=== PATIENT | male | born 1985 | race Caucasian/White ===

== ENCOUNTER 2017-10-16 13:37 | Emergency (ER) | payer OTHER ==
[2017-10-16 14:09] VITALS: BP 123/78
--- NOTE | 2017-10-16 14:43 | RAD ---
HISTORY: Fall, left lateral rib pain COMPARISONS: None VIEWS: 6, Frontal view of the chest with frontal and oblique views of the left hemithorax FINDINGS: There is a nondisplaced fracture of the lateral aspect of the left eighth rib IMPRESSION: NONDISPLACED FRACTURE OF THE LATERAL ASPECT OF THE LEFT EIGHTH RIB. NO PNEUMOTHORAX.
--- NOTE | 2017-10-16 15:12 | UC ---
Minor Trauma HPI - HPI Summary HPI Summary: fell on side walk yesterday pain in left lower ribs - History of Current Complaint Chief Complaint: UCUpperExtremity Stated Complaint: LEFT SIDE INJURY Time Seen by Provider: 10/16/17 15:10 Hx Obtained From: Patient Onset/Duration: Sudden Onset, Lasting Days - 1, Still Present Onset Of Pain: Immediate Severity Initially: Moderate Severity Currently: Moderate Pain Intensity: 7 Pain Scale Used: 0-10 Numeric Mechanism Of Injury: Fall From A Standing Position Aggravating Factor(s): Coughing, Deep Breaths Alleviating Factor(s): Nothing - Allergies/Home Medications Allergies/Adverse Reactions: Allergies Allergy/AdvReac Type Severity Reaction Status Date / Time No Known Allergies Allergy Verified 11/14/15 07:11 PMH/Surg Hx/FS Hx/Imm Hx Previously Healthy: Yes Other History Of: Negative For: Anticoagulant Therapy - Surgical History Surgical History: None - Family History Known Family History: Positive: None, Cardiac Disease - paternal grandmother, Diabetes - paternal grandmother, maternal grandparents Negative: Hypertension - Social History Occupation: Employed Full-time Lives: Alone Alcohol Use: Rare Alcohol Amount: STOPPED DRINKING JANUARY Substance Use Type: None Substance Use Comment - Amount & Last Used: 1 monster and 2 cups coffee daily Smoking Status (MU): Former Smoker Type: Cigarettes Amount Used/How Often: quit 2 years ago, smoked ~1 year When Did the Patient Quit Smoking/Using Tobacco: 2010 - Immunization History Vaccination Up to Date: Yes Review of Systems Constitutional: Negative Skin: Negative Eyes: Negative ENT: Negative Respiratory: Negative Cardiovascular: Negative Gastrointestinal: Negative Genitourinary: Negative Motor: Negative Neurovascular: Negative Musculoskeletal: Arthralgia - left lower anterior ribs Neurological: Negative Psychological: Negative Is Patient Immunocompromised?: No All Other Systems Reviewed And Are Negative: Yes Physical Exam Triage Information Reviewed: Yes Appearance: Well-Appearing, Well-Nourished, Pain Distress - moderate Vital Signs: Initial Vital Signs Temp 98.8 F 10/16/17 14:06 Pulse 107 10/16/17 14:06 Resp 18 10/16/17 14:06 BP 123/78 10/16/17 14:06 Pulse Ox 100 10/16/17 14:06 Vital Signs Reviewed: Yes Eye Exam: Normal Eyes: Positive: Conjunctiva Clear ENT Exam: Normal ENT: Positive: Normal ENT inspection, Hearing grossly normal, Pharynx normal. Negative: Nasal congestion, Nasal drainage, Trismus, Muffled voice, Hoarse voice , Sinus tenderness Dental Exam: Normal Neck exam: Normal Neck: Positive: Supple, Nontender, No Lymphadenopathy Respiratory Exam: Normal Respiratory: Positive: Chest non-tender, Lungs clear, Normal breath sounds, No respiratory distress, No accessory muscle use Cardiovascular Exam: Normal Cardiovascular: Positive: RRR, No Murmur, Pulses Normal, Brisk Capillary Refill Abdominal Exam: Normal Abdomen Description: Positive: Nontender, No Organomegaly, Soft. Negative: CVA Tenderness (R), CVA Tenderness (L) Bowel Sounds: Positive: Present Musculoskeletal Exam: Normal Musculoskeletal: Positive: Strength Intact, ROM Intact, No Edema Neurological Exam: Normal Neurological: Positive: Alert, Muscle Tone Normal Psychological Exam: Normal Skin Exam: Normal Diagnostics - Radiology No standard instances Xray Interpretation: Positive (See Comments) - non-displaced 8th rib fracture Radiology Interpretation Completed By: Radiologist Minor Trauma Course/Dx - Course Course Of Treatment: pain managemnt, frequest cough and deep breathe follow with pcp - Differential Dx/Diagnosis Provider Diagnoses: nondisplaced 8th rib fracture Discharge - Discharge Plan Condition: Stable Disposition: HOME Prescriptions: HYDROcodone/ACETAMIN 5-325 MG* [[place] 5-325 TAB*] 1 - 2 tab PO Q6H PRN #18 tab MDD 6 PRN Reason: pain Ibuprofen TAB* [Motrin TAB* 600 MG] 600 mg PO Q6H PRN #40 tab PRN Reason: pain Patient Education Materials: Rib Fracture (ED), Ice Pack Application (ED) Forms: *Work Release Referrals: [facility] [Outside] - If Needed
== END 2017-10-16 15:35 | disposition home or self-care (01) ==
LOC: UCEAST 13:37
DX: S22.32XA Fracture of one rib, left side, initial encounter for closed fracture (principal); W18.30XA Fall on same level, unspecified, initial encounter; Y92.9 Unspecified place or not applicable; Z87.891 Personal history of nicotine dependence
CPT/HCPCS: 99212; G0463

== ENCOUNTER 2019-08-06 15:49 | Emergency (ER) | payer OTHER ==
[2019-08-06 16:24] VITALS: BP 129/81
--- NOTE | 2019-08-06 16:50 | UC ---
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 Today at work he became diaphoretic, and put his head down to rest. Co-workers recognized that he was unwell, and sent him to on site medical staff for evaluation. ER was advised, but he came here due to past bad experience with ER visits. No nausea or vomiting. Has eaten mac and cheese and drunk a lot of water today. Poor quality sleep is longstanding--only sleeps about 2 to 3 hour stretches. He sees a provider at [facility], does not know when he last had labs. 60 pounds of weight loss this past year with effort. Frontal headache without associated vision changes although sometimes his left eye tweaks. At night, he feels as though his "heart stops" without associated shortness of breath or chest pain. He just feels very tired. - History Of Current Complaint Chief Complaint: UCGeneralIllness Stated Complaint: RAPID HR, HEADACHE, FATIGUE Time Seen by Provider: 08/06/19 16:38 Hx Obtained From: Patient Onset/Duration: Gradual Onset, Lasting Days - 7 Timing: Constant - sense of fatigue. Severity Initially: Mild Severity Currently: Moderate Pain Intensity: 0 Character: Lightheaded, Weak, Dizzy Aggravating Factor(s): Exertion Alleviating Factor(s): Rest Associated Signs And Symptoms: Positive: Diaphoresis, Palpitations. Negative: Nausea, Vomiting, SOB, Unsteady Gait, Visual Changes, Decreased Oral Intake - Risk Factors Cardiac Risk Factors: Negative CVA Risk Factor: Negative - Allergies/Home Medications Allergies/Adverse Reactions: Allergies Allergy/AdvReac Type Severity Reaction Status Date / Time No Known Allergies Allergy Verified 08/06/19 16:24 Home Medications: Home Medications NK [No Home Medications Reported] 08/06/19 [History Confirmed 08/06/19] PMH/Surg Hx/FS Hx/Imm Hx Previously Healthy: Yes Other History Of: Negative For: Anticoagulant Therapy - Surgical History Surgical History: None - Family History Known Family History: Positive: None, Cardiac Disease - paternal grandmother, Diabetes - paternal grandmother, maternal grandparents Negative: Hypertension - Social History Occupation: Employed Full-time Lives: Dormitory/Roommates - lives with a roommate Alcohol Use: Rare Alcohol Amount: STOPPED DRINKING JANUARY Substance Use Type: None Substance Use Comment - Amount & Last Used: 1 monster and 2 cups coffee daily Smoking Status (MU): Former Smoker Type: Cigarettes Amount Used/How Often: quit 2 years ago, smoked ~1 year When Did the Patient Quit Smoking/Using Tobacco: 2010 - Immunization History Vaccination Up to Date: Yes Review of Systems All Other Systems Reviewed And Are Negative: Yes Constitutional: Positive: Fever - low grade today; previously unaware. Skin: Positive: Negative. Negative: Rash Eyes: Negative: Blurred Vision, Diplopia ENT: Positive: Negative Respiratory: Positive: Negative. Negative: Shortness Of Breath Cardiovascular: Positive: Palpitations. Negative: Chest Pain Gastrointestinal: Positive: Negative Genitourinary: Positive: Negative Motor: Positive: Negative Neurovascular: Positive: Negative Musculoskeletal: Positive: Negative Neurological: Positive: Headache Psychological: Positive: Negative Is Patient Immunocompromised?: No Physical Exam Triage Information Reviewed: Yes Appearance: Well-Nourished, Ill-Appearing - looks flushed and unwell. Vital Signs: Initial Vital Signs Temp 99.2 F 08/06/19 16:22 Pulse 104 08/06/19 16:22 Resp 18 08/06/19 16:22 BP 129/81 08/06/19 16:22 Pulse Ox 97 08/06/19 16:22 Eyes: Positive: Conjunctiva Inflamed - mild bilateral injection ENT: Positive: Pharynx normal, TMs normal Neck: Positive: Supple, Nontender, No Lymphadenopathy Respiratory: Positive: Lungs clear, Normal breath sounds, No respiratory distress Cardiovascular: Positive: RRR, No Murmur, Tachycardia Abdomen Description: Positive: Nontender, No Organomegaly, Soft Musculoskeletal Exam: Normal Musculoskeletal: Positive: Strength Intact, ROM Intact Neurological Exam: Normal Neurological: Positive: Alert Psychological Exam: Other - mildly depressed mood and affect with decreased eye contact. Skin Exam: Normal Diagnostics - EKG Cardiac Rate: Tachycardia Cardiac Rhythm: Sinus: Normal Ectopy: None ST Segment: Normal Dizzy Course/Dx - Course Course Of Treatment: Advised ER for evaluation of symptoms given duration and low grade fever associated with tachycardia. - Differential Dx/Diagnosis Differential Diagnosis/HQI/PQRI: Hypovolemia, Vasovagal Reaction, Other - hyperthyroidism, fever of unknown origin. Provider Diagnosis: Tachycardia - Physician Notifications Discussed Patient Care With: Ly Crowe Time Discussed With Above Provider: 16:55 Discharge ED - Sign-Out/Discharge Documenting (check all that apply): Patient Departure All imaging exams completed and their final reports reviewed: No Studies - Discharge Plan Condition: Stable Disposition: TRANS HIGHER LVL OF CARE FAC Patient Education Materials: Tachycardia (ED) Referrals: No Primary Care Phys,NOPCP [Primary Care Provider] - Additional Instructions: Please go directly to emergency room for evaluation of your high heart rate and near fainting episode. This needs evaluation which we cannot provide here. - Billing Disposition and Condition Condition: STABLE Disposition: Trans Higher Lvl of Care Fac
== END 2019-08-06 17:02 | disposition short-term general hospital (02) ==
LOC: UCEAST 15:49
DX: R00.0 Tachycardia, unspecified (principal)
CPT/HCPCS: 93005; 99212; G0463